=== PATIENT | male | born 1995 | race Caucasian/White ===

== ENCOUNTER 2018-11-30 04:56 | Emergency (ER) | payer BC ==
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
[2018-11-30 05:02] VITALS: BP 141/88
== END 2018-11-30 05:28 ==
LOC: EEVIPCON 04:56
DX: S60.811A Abrasion of right wrist, initial encounter (principal); V48.0XXA Car driver injured in noncollision transport accident in nontraffic accident, initial encounter; Y92.410 Unspecified street and highway as the place of occurrence of the external cause